=== PATIENT | male | born 1975 | race Caucasian/White ===

== ENCOUNTER 2016-10-13 15:13 | Emergency (ER) | payer BC ==
[2016-10-13 15:21] VITALS: BP 131/80; PULSE 101; TEMP 98.2; BMI 38.2
[2016-10-13 16:27] LABS: BASOPHIL 0.3 % (0-2.0); EOSINOPHIL 0.4 % (0-4.5); MCHC 33.8 g/dl (32.0-35.9); MEAN CELL VOLUME 85.9 fl (80-96); MEAN PLT VOLUME 10.3 fl (7.5-11.1); NEUTROPHILS 71.8 % (42.8-82.8); PLATELET COUNT 240 K/MM3 (134-434); RDW 13.5 % (11.9-15.9); WHITE BLOOD COUNT 9.5 K/mm3 (4.0-10.0)
[2016-10-13 16:44] LABS: CREATININE 1.1 mg/dL (0.7-1.3)
--- NOTE | 2016-10-13 17:16 | PDOC ---
History of Present Illness - General Chief Complaint: Weakness Stated Complaint: LETHARGIC Time Seen by Provider: 10/13/16 15:47 History Source: Patient Exam Limitations: No Limitations - History of Present Illness Initial Comments: 10/13/16 17:11 CC chronic fatigue for some period; worse this week; a lot of stress at work; no SOB, CP, diaphorsis 10/13/16 17:13 feels it may be related to old tires in apt Severity: mild Associated Symptoms: denies: denies symptoms, chest pain, cough, diaphoresis, fever/chills, loss of appetite, malaise, nausea/vomiting, rash, shortness of breath Past History - Past Medical History Allergies/Adverse Reactions: Allergies Allergy/AdvReac Type Severity Reaction Status Date / Time moxifloxacin HCl Allergy Verified 10/13/16 15:21 [From Avelox] Home Medications: Ambulatory Orders NK [No Known Home Medication] 05/20/16 Anemia: No Asthma: No Cancer: Yes Cardiac Disorders: Yes CVA: No COPD: No CHF: No - Surgical History Cardiac Surgery: Yes - Immunization History Immunization Up to Date: Yes - Psycho/Social/Smoking Cessation Hx Suicidal Ideation: No Smoking History: Never smoked Hx Alcohol Use: (socially) Drug/Substance Use Hx: No Review of Systems - Review of Systems Constitutional: No: Symptoms Reported HEENTM: Yes: Nose Congestion Respiratory: No: Symptoms reported, Cough, SOB with Exertion, SOB at Rest, Hemoptysis Cardiac (ROS): No: Symptoms Reported ABD/GI: No: Diarrhea, Nausea, Poor Appetite, Vomiting, Abdominal cramping, Tarry Stools : No: Symptoms Reported Musculoskeletal: No: Symptoms Reported *Physical Exam - Vital Signs Last Vital Signs Temp Pulse Resp BP Pulse Ox 98.2 F 101 H 20 131/80 99 10/13/16 15:18 10/13/16 15:18 10/13/16 15:18 10/13/16 15:18 10/13/16 15:18 - Physical Exam General Appearance: Yes: Appropriately Dressed, Apparent Distress HEENT: positive: TMs Normal, Pharynx Normal, Nasal Congestion, Rhinorrhea. negative: Pharyngeal Erythema Neck: positive: Supple. negative: Tender, Rigid, Lymphadenopathy (R), Lymphadenopathy (L) Respiratory/Chest: positive: Lungs Clear. negative: Chest Tender ED Treatment Course - LABORATORY CBC & Chemistry Diagram: 10/13/16 16:10 10/13/16 16:10 - ADDITIONAL ORDERS Additional order review: Laboratory Results 10/13/16 16:10 Sodium 143 Potassium 3.7 Chloride 105 Carbon Dioxide 28 Anion Gap 10 BUN 15 Creatinine 1.1 Random Glucose 95 D Calcium 9.0 10/13/16 16:10 RBC 5.01 MCV 85.9 MCHC 33.8 RDW 13.5 MPV 10.3 Neutrophils % 71.8 Lymphocytes % 20.9 Monocytes % 6.6 Eosinophils % 0.4 Basophils % 0.3 Medical Decision Making - Medical Decision Making 10/13/16 17:14 spoke with poisons;= ntires in house not considered problem; labs nl; seen by cardiaologist for same last week= all nl *DC/Admit/Observation/Transfer Diagnosis at time of Disposition: Fatigue Qualifiers: Encounter type: sequela - Discharge Dispostion Disposition: HOME Condition at time of disposition: Stable Admit: No - Patient Instructions Additional Instructions: Please see local MD for this chronic fatigue you may need further work up - Post Discharge Activity Work/School Note: Back to Work
== END 2016-10-13 17:22 | disposition short-term general hospital (02) ==
LOC: JERFT 15:13
DX: R53.83 Other fatigue (principal); Z85.9 Personal history of malignant neoplasm, unspecified; I51.9 Heart disease, unspecified
CPT/HCPCS: 36415; 80048; 85025; 99281-25

== ENCOUNTER 2016-10-26 06:09 | Emergency (ER) | payer BC ==
[2016-10-26 06:35] VITALS: TEMP 98; BMI 38.2
[2016-10-26] MEDS ORDERED: SODIUM CHLORIDE 1,000 ML IV STA (06:38)
[2016-10-26] MEDS ORDERED: PANTOPRAZOLE SODIUM 40 MG in SODIUM CHLORIDE 100 ML IVPB ONE (06:38)
[2016-10-26] MEDS ORDERED: ONDANSETRON 4 MG/2 ML VIAL IVPB ONE (06:38)
--- NOTE | 2016-10-26 06:45 | PDOC ---
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 Patient states he woke up very nauseous, and has nausea after eating all the time. He described pain as mid abdominal without radiation. Patient states 2 weeks ago he had a stress test and was prescribed lasix, and he made an appointment with a GI specialist at [place]. He denies vomiting, back pain, diff breathing, fever, CP, or any other complaints at this time. No OTC medication use. Reports 09/25 severity. Timing/Duration: reports: constant, getting worse Quality: reports: moderate Abdominal Pain Onset Location: reports: epigastric, periumbilical Pain Radiation: reports: no radiation Activities at Onset: reports: no specific activity Treatment Prior to Arrive: worse with: analgesics, antacids, cold pack, heat, laxative, enema, other Aggravating Factors: worse with: None, Defecation, Eating, Emotional upset, Exertion, [place], Movement, Voiding, Change in position Alleviating Factors: worse with: None, Belching, Shallow Breathing, Defecation, Eating, Holding Breath, Passing Gas, Change in Position, Rest, Voiding, Vomiting Past History - Travel Traveled outside of the country in the last 30 days: No Close contact w/someone who was outside of country & ill: No - Past Medical History Allergies/Adverse Reactions: Allergies Allergy/AdvReac Type Severity Reaction Status Date / Time moxifloxacin HCl Allergy Verified 10/26/16 06:29 [From Avelox] Home Medications: Ambulatory Orders Budesonide [Rhinocort Allergy] 8.43 ml IH DAILY 10/26/16 Furosemide [Lasix] 20 mg PO DAILY 10/26/16 Ranitidine [Zantac -] 150 mg PO DAILY 10/26/16 Anemia: No Asthma: No Cancer: Yes Cardiac Disorders: Yes CVA: No COPD: No CHF: No - Surgical History Cardiac Surgery: Yes - Immunization History Immunization Up to Date: Yes - Psycho/Social/Smoking Cessation Hx Suicidal Ideation: No Smoking History: Never smoked Have you smoked in the past 12 months: No Hx Alcohol Use: No Drug/Substance Use Hx: No Abd/GI Specific PMHX - Complaint Specific PMHX Colitis: No Diverticulitis: No Gall Bladder Disease: No GERD: Yes Hepatitis: No Irritable Bowel Synd (IBS): No Pancreatitis: No GI Ulcer Disease: No Review of Systems - Review of Systems Able to Perform ROS?: Yes Is the patient limited Irish proficient: No Constitutional: No: Chills, Fever Respiratory: No: Cough, Stridor, Wheezing Cardiac (ROS): No: Chest Pain, Palpitations, Syncope, Chest Tightness ABD/GI: Yes: Nausea, Other (Generalized abd pain). No: Difficulty Swallowing, Poor Appetite, Poor Fluid Intake, Rectal Bleeding, Vomiting : No: Burning, Dysuria, Flank Pain, Hematuria All Other Systems: Reviewed and Negative *Physical Exam - Vital Signs Last Vital Signs Temp Pulse Resp BP Pulse Ox 98.0 F 102 H 16 153/97 100 10/26/16 06:30 10/26/16 06:30 10/26/16 06:30 10/26/16 06:30 10/26/16 06:30 - Physical Exam General Appearance: Yes: Nourished, Appropriately Dressed. No: Apparent Distress, Mild Distress, Moderate Distress, Severe Distress Neck: positive: Trachea midline, Normal Thyroid, Supple. negative: Lymphadenopathy (R), Lymphadenopathy (L) Respiratory/Chest: positive: Lungs Clear, Normal Breath Sounds. negative: Respiratory Distress, Accessory Muscle Use, Labored Respiration, Rapid RR Cardiovascular: positive: Regular Rhythm, Regular Rate. negative: Edema, JVD, Murmur Gastrointestinal/Abdominal: positive: Soft, Decreased BS. negative: Tender, Distended, Guarding, Rebound, Tenderness Musculoskeletal: positive: Normal Inspection. negative: CVA Tenderness Extremity: positive: Normal Capillary Refill, Normal Inspection, Normal Range of Motion Integumentary: positive: Normal Color, Dry, Warm Neurologic: positive: channel cementer II-XII NML intact, Fully Oriented, Alert, Normal Mood/ Affect, Normal Response, Motor Strength 5/5 ED Treatment Course - RADIOLOGY Radiology Studies Ordered: Category Date Time Status GALLBLADDER US [US] Stat Ultrasound 10/26/16 06:38 Ordered
[2016-10-26] MEDS ORDERED: PANTOPRAZOLE SODIUM 100 ML IVPB ONE (06:51)
[2016-10-26] MEDS ORDERED: ONDANSETRON 4 MG/2 ML VIAL ONE ×2 (06:52→10:36)
[2016-10-26 07:16] LABS: BASOPHIL 0.4 % (0-2.0); EOSINOPHIL 0.8 % (0-4.5); MCH 29.4 pg (25.7-33.7); MCHC 33.9 g/dl (32.0-35.9); MEAN CELL VOLUME 86.8 fl (80-96); MEAN PLT VOLUME 9.8 fl (7.5-11.1); NEUTROPHILS 70.1 % (42.8-82.8); PLATELET COUNT 211 K/MM3 (134-434); RDW 13.4 % (11.9-15.9); WHITE BLOOD COUNT 8.8 K/mm3 (4.0-10.0)
[2016-10-26 07:30] LABS: TROPONIN I < 0.02 ng/ml (0.00-0.05)
[2016-10-26 07:41] LABS: ALBUMIN 4.2 g/dl (3.4-5.0); CALCIUM 9.2 mg/dL (8.5-10.1)
[2016-10-26 07:43] LABS: BILIRUBIN,DIRECT 0.2 mg/dL (0.0-0.2); BILIRUBIN,TOTAL 0.8 mg/dL (0.2-1.0); COCKROFT - GAULT 129.09; CREATININE 1.1 mg/dL (0.7-1.3)
[2016-10-26] MEDS ORDERED: ONDANSETRON 4 MG/2 ML VIAL IVPUSH ONE (09:48)
[2016-10-26] MEDS ORDERED: ACETAMINOPHEN 325 MG TABLET (FP) PO ONE (09:48)
[2016-10-26] MEDS ORDERED: ACETAMINOPHEN 325 MG TABLET (FP) ONE (10:36)
[2016-10-26] MEDS ORDERED: POTASSIUM CHLORIDE TABS 20 MEQ TABLET.ER (FP) PO ONE ×2 (10:43→10:50)
--- NOTE | 2016-10-26 10:43 | PDOC ---
*Physical Exam - Vital Signs Last Vital Signs Temp Pulse Resp BP Pulse Ox 98.0 F 73 18 141/88 98 10/26/16 06:30 10/26/16 07:06 10/26/16 07:06 10/26/16 07:06 10/26/16 07:06 - Physical Exam Comments: 10/26/16 10:40 General Appearance: This well appearing 41-year-old male V/S: hemodynamically stable, afebrile Skin: WNL of pt's skin color, no signs of pallor, mottling, cyanosis Head:symmetrical Eyes: EOM's intact, PERRLA Ears: denies pain Nose: patent Throat: lips, teeth, gums, tongue, buccal mucos pink and moist Lungs: Chest symmetry equal. Cap refill <3 seconds. Lung sounds clear Cardiac: PMI at R 4MCL space, pos S1 and S2, regular rate. Abdomen: Soft, round, nontender : Not observed Muscularskeletal: Gait steady, ambulated in to ER, no edema +PMS Neuro: AAOx3, cognitively intact, speech clear and appropriate. General Appearance: Yes: Appropriately Dressed ED Treatment Course - LABORATORY CBC & Chemistry Diagram: 10/26/16 06:50 10/26/16 06:50 - ADDITIONAL ORDERS Additional order review: Laboratory Results 10/26/16 10/26/16 06:50 06:50 Sodium 141 Potassium 3.3 L Chloride 103 Carbon Dioxide 28 Anion Gap 10 BUN 15 Creatinine 1.1 Random Glucose 94 Calcium 9.2 Total Bilirubin 0.8 D Direct Bilirubin 0.2 AST 14 L ALT 32 Alkaline Phosphatase 80 Creatine Kinase 98 Troponin I < 0.02 Total Protein 8.0 Albumin 4.2 Total Amylase 80 Lipase 180 10/26/16 06:50 RBC 5.56 MCV 86.8 MCHC 33.9 RDW 13.4 MPV 9.8 Neutrophils % 70.1 Lymphocytes % 22.1 Monocytes % 6.6 Eosinophils % 0.8 D Basophils % 0.4 - Medications Given in the ED: ED Medications Discontinued Medications Generic Name Dose Route Start Last Admin Trade Name Freq PRN Reason Stop Dose Admin Pantoprazole Sodium 40 mg/ 100 mls @ 200 mls/hr 10/26/16 06:38 10/26/16 06:58 Sodium Chloride IVPB 10/26/16 07:07 200 mls/hr ONCE ONE Administration Sodium Chloride 1,000 mls @ 1,000 mls/hr 10/26/16 06:38 10/26/16 06:58 Normal Saline - IV 10/26/16 07:37 1,000 mls/hr ASDIR STA Administration Ondansetron HCl 4 mg 10/26/16 06:38 10/26/16 06:58 Zofran Injection IVPB 10/26/16 06:39 4 mg ONCE ONE Administration Medical Decision Making - Medical Decision Making 10/26/16 10:40 A/P: 41-year-old male who had presented earlier with abdominal pain, nausea for the last 3 days. He also states he had some weight loss of about 15 pounds over the last month. He states his pain is a 3 out of 10. He does have a scheduled GI specialist from [place] appointment in about 3 weeks. Because of this pain he now presents for evaluation. Initially seen from the night staff was started with an ultrasound of the gallbladder as well as labs. He was received normal saline and Zofran and Protonix. 1. Abdominal pain Completed normal saline, Zofran, Protonix Ultrasound shows fatty liver versus liver disease and will need further workup as an outpatient Hypokalemia at 3.3. Will give supplementation. Now states he has a headache and will treat with Tylenol as well as repeated Zofran for his nausea. Patient is going to be discharged and have him follow-up with a GI specialist. *DC/Admit/Observation/Transfer Diagnosis at time of Disposition: Abdominal pain, Hypokalemia - Discharge Dispostion Disposition: HOME Condition at time of disposition: Good Admit: No - Prescriptions Prescriptions: Ondansetron [Zofran Odt -] 4 mg SL BID #14 od.tablet - Patient Instructions Printed Discharge Instructions: DI for Abdominal Pain-Adult Additional Instructions: Discharge instructions 1. Please follow up with your primary physician within the next few days and explain that you have been seen here in the Emergency Room. Continue to keep your appointment with your GI specialist in 3 weeks and bring him a copy of your ultrasound as well as lab work 2. If you experience any worsening of symptoms, such as dehydration, nausea, vomiting that's excessive please return to the ER 3. Rest, stick with a bland diet, avoid alcohol and caffeine 4. Drink plenty of water
[2016-10-26 11:17] VITALS: BP 137/86; PULSE 82
--- NOTE | 2016-10-26 11:20 | EKG ---
Test Reason : Blood Pressure : / mmHG Vent. Rate : 076 BPM Atrial Rate : 076 BPM P-R Int : 188 ms QRS Dur : 094 ms QT Int : 364 ms P-R-T Axes : 029 063 027 degrees QTc Int : 409 ms NORMAL SINUS RHYTHM NORMAL ECG WHEN COMPARED WITH ECG OF 20-MAY-2016 23:29, NO SIGNIFICANT CHANGE WAS FOUND Confirmed by PAYTON BELL MD ([id number]) on 10/26/2016 11:19:59 AM Referred By: Confirmed By:PAYTON BELL MD
== END 2016-10-26 11:00 | disposition home or self-care (01) ==
LOC: JER 06:09
PROC: 3E033GC Introduction of Other Therapeutic Substance into Peripheral Vein, Percutaneous Approach (ICD-10-PCS; principal; 2016-10-26)
PROC: 3E033GC Introduction of Other Therapeutic Substance into Peripheral Vein, Percutaneous Approach (ICD-10-PCS; 2016-10-26)
DX: R10.84 Generalized abdominal pain (principal); E87.6 Hypokalemia; R63.4 Abnormal weight loss
CPT/HCPCS: 36415; 76705-TC; 80048; 80076; 82150; 82550; 83690; 84484; 85025; 93005; 93010; 99284-25